=== PATIENT | male | born 1985 ===

== ENCOUNTER 2020-08-22 01:01 | Emergency (ER) | payer SELFPAY ==
[2020-08-22 01:14] VITALS: BP 122/76
[2020-08-22] MEDS ORDERED: TETANUS,DIPH,PERTUSS(ACELL) VACCINE 0.5 ML SYRINGE IM ONE (03:03)
--- NOTE | 2020-08-22 03:31 | Emergency Department Report ---
ED General Adult HPI - General Chief complaint: Skin/Abscess/Foreign Body Stated complaint: FISH HOOK STUCK IN FINGER Time Seen by Provider: 08/22/20 02:36 Source: patient Mode of arrival: Ambulatory Limitations: No Limitations - History of Present Illness Initial comments: 34-year-old male patient presents with complaints of fishhook stuck in the right index finger x yesterday. He states the pain is mild and denies any numbness or difficulty moving the finger. He is unsure of his last tetanus vaccination. -: Sudden Consistency: constant - Related Data Previous Rx's Medication Instructions Recorded Last Taken Type Ibuprofen [Motrin 800 MG tab] 800 mg PO Q8HR PRN #20 tablet 08/22/20 Unknown Rx cephALEXin [Keflex] 500 mg PO Q8HR 7 Days #21 cap 08/22/20 Unknown Rx Allergies Allergy/AdvReac Type Severity Reaction Status Date / Time No Known Allergies Allergy Unverified 08/22/20 01:12 ED Review of Systems ROS: Stated complaint: FISH HOOK STUCK IN FINGER Other details as noted in HPI Musculoskeletal: denies: joint swelling, arthralgia Skin: denies: change in color Neurological: denies: numbness, paresthesias ED Past Medical Hx - Past Medical History Previous Medical History?: No - Surgical History Past Surgical History?: Yes Additional Surgical History: ankle surgery - Social History Smoking Status: Never Smoker Substance Use Type: None - Medications Home Medications: Home Medications Medication Instructions Recorded Confirmed Last Taken Type Ibuprofen [Motrin 800 MG tab] 800 mg PO Q8HR PRN #20 tablet 08/22/20 Unknown Rx cephALEXin [Keflex] 500 mg PO Q8HR 7 Days #21 cap 08/22/20 Unknown Rx ED Physical Exam - General Limitations: No Limitations General appearance: alert, in no apparent distress - Head Head exam: Present: atraumatic, normocephalic - Eye Eye exam: Present: normal appearance - Extremities Exam Extremities exam: Present: full ROM, other (Three-pronged fishhook noted to distal right index finger; normal perfusion and sensation of the finger noted along with normal range of motion) - Neurological Exam Neurological exam: Present: alert, oriented X3 - Psychiatric Psychiatric exam: Present: normal affect, normal mood ED Course Vital Signs 08/22/20 01:12 Temperature 98.9 F Pulse Rate 65 Respiratory 18 Rate Blood Pressure 122/76 O2 Sat by Pulse 100 Oximetry - Procedure Description Procedures done: Area prepped with Betadine. 8 cc of 1% lidocaine without epi used to digitally block the right index finger. Cutters used to trim 1 side of the fishhook. Sharp and a fishhook was pushed through the finger; minimal bleeding occurred. [place] removed entirely from finger. Wound was irrigated with Betadine and saline mix thoroughly. Sterile dressing and Dermabond applied. Patient tolerated procedure well without any immediate complications. ED Medical Decision Making - Radiology Data Radiology results: report reviewed INDICATION / CLINICAL INFORMATION: fishhook in finger; r/o fracture or other FB COMPARISON: None available. FINDINGS: BONES / JOINT(S): No acute fracture or subluxation. No significant arthritis. SOFT TISSUES: Treble look within the soft tissues of the second digit. The dolores appears immediately adjacent to the tuft of the distal phalanx. ADDITIONAL FINDINGS: None. - Medical Decision Making 34-year-old male patient presents with complaints of fishhook stuck in the right index finger x yesterday. He states the pain is mild and denies any numbness or difficulty moving the finger. He is unsure of his last tetanus vaccination. [place] successfully removed. Keflex given for infection prevention. Tetanus vaccine updated today. Patient to follow-up with his primary care doctor in 3 to 5 days. Discussed wound care and strict return precautions in detail with patient who verbalized understanding. He is well-appearing and he is stable for discharge home. Critical care attestation.: If time is entered above; I have spent that time in minutes in the direct care of this critically ill patient, excluding procedure time. ED Disposition Clinical Impression: Foreign body of right index finger Disposition: DC-01 TO HOME OR SELFCARE Is pt being admited?: No Condition: Stable Instructions: Skin Foreign Body, Wound Care, Adult Prescriptions: cephALEXin [Keflex] 500 mg PO Q8HR 7 Days #21 cap Ibuprofen [Motrin 800 MG tab] 800 mg PO Q8HR PRN #20 tablet PRN Reason: pain Referrals: ASHLEE OWENS MD [Primary Care Provider] - 3-5 Days Print Language: [place]THER[place] IRISH
--- NOTE | 2020-08-22 03:35 | XRay Report ---
LEFT HAND 3 VIEWS INDICATION / CLINICAL INFORMATION: fishhook in finger; r/o fracture or other FB COMPARISON: None available. FINDINGS: BONES / JOINT(S): No acute fracture or subluxation. No significant arthritis. SOFT TISSUES: Treble look within the soft tissues of the second digit. The dolores appears immediately a djacent to the tuft of the distal phalanx. ADDITIONAL FINDINGS: None. Signer Name: Catalino Artis MD Signed: 08/22/2020 3:31 AM Workstation Name: [id number]
[2020-08-22] MEDS ORDERED: LIDOCAINE-MPF (1%) 10 MG/1 ML VIAL 5 ML INFILTRATI ONE (06:00)
== END 2020-08-22 04:40 | disposition home or self-care (01) ==
LOC: ED 01:01
DX: S60.450A Superficial foreign body of right index finger, initial encounter (principal); Z98.890 Other specified postprocedural states; Z79.899 Other long term (current) drug therapy; W45.8XXA Other foreign body or object entering through skin, initial encounter; Y93.89 Activity, other specified; Y92.89 Other specified places as the place of occurrence of the external cause; Y99.8 Other external cause status
CPT/HCPCS: 90471; 90715